=== PATIENT | female | born 1980 | race Two or more races ===

== ENCOUNTER 2024-10-30 11:04 | Emergency (ER) | payer OTHER ==
[~2024-10-30] VITALS: Ht 144.8 cm; Wt 90.9 kg
[2024-10-30 11:12] VITALS: TEMP 98.6
[2024-10-30] MEDS: HYDROmorphone HCL 2 MG/ML SYRINGE IVP ONE (11:45)
[2024-10-30] MEDS: BACITRACIN 0.9 GM PACKET OINTMENT TP ONE (11:53)
[2024-10-30 13:31] VITALS: BP 136/78; PULSE 78; RESP 16; O2SAT 100
== END 2024-10-30 14:21 | disposition short-term general hospital (02) ==
LOC: EMS 11:07
DX: T23.252A Burn of second degree of left palm, initial encounter (principal); T31.0 Burns involving less than 10% of body surface; W01.0XXA Fall on same level from slipping, tripping and stumbling without subsequent striking against object, initial encounter; Y93.89 Activity, other specified; Y92.89 Other specified places as the place of occurrence of the external cause; Y99.8 Other external cause status
CPT/HCPCS: 99285; 96374; 16000; J1171